=== PATIENT | male | born 1965 | race Caucasian/White ===

== ENCOUNTER → 2017-10-24 | Outpatient (CLI) | payer BC | END | disposition home or self-care (01) | LOC: KCIC CT 14:46 | DX: N20.0 Calculus of kidney (principal); N21.0 Calculus in bladder; N40.0 Benign prostatic hyperplasia without lower urinary tract symptoms; I87.8 Other specified disorders of veins; I70.0 Atherosclerosis of aorta; K76.0 Fatty (change of) liver, not elsewhere classified | CPT/HCPCS: 74176 ==